=== PATIENT | male | born 1990 | race African-American/Black ===

== ENCOUNTER 2016-05-22 00:17 | Emergency (ER) | payer BC, SELFPAY ==
[2016-05-22] MEDS ORDERED: predniSONE 20 MG TAB ONE (00:38)
[2016-05-22] MEDS ORDERED: Cyclobenzaprine 10 MG TAB ONE (00:38)
[2016-05-22] MEDS ORDERED: Ketorolac Tromethamine 60 MG/2 ML VIAL ONE (00:38)
--- NOTE | 2016-05-22 01:17 | ERRECORD ---
[facility] EMERGENCY RECORD HPI BACK (00:53 MPUR) CHIEF COMPLAINT: Patient presents for evaluation of pain. HISTORIAN: History provided by patient, 27 yo male with 2 day hx of pain in the lumbar region. Gradual onset, unassociated with injury.Denies problems with bladder of bowel control. MECHANISM OF INJURY: No apparent mechanism of injury. LOCATION: No localizing symptoms. TIME COURSE: Gradual onset of symptoms. ASSOCIATED WITH: No associated bladder incontinence, No associated bowel incontinence, No associated dysuria, No associated fever, No associated motor weakness, No associated numbness, No associated problems with urination, pain in the ebuttocks. EXACERBATED BY: Patient's condition exacerbated by nothing. RELIEVED BY: Patient's condition relieved by nothing. RISK FACTORS: No malignancy risks identified, No herniated disc risks identified. ROS (01:03 MPUR) CONSTITUTIONAL: Historian denies fever. EYES: Historian denies eye pain. ENT: Historian denies rhinorrhea. CARDIOVASCULAR: Historian denies chest pain. RESPIRATORY: Historian denies cough. GI: Historian denies diarrhea, Historian denies vomiting. GENITOURINARY MALE: Historian denies dysuria. MUSCULOSKELETAL: See HPI. SKIN: Historian denies rash. NEUROLOGIC: Historian denies seizures. ENDOCRINE: Historian denies skin changes. HEMO/LYMPHATIC: Historian denies easy bruising. PAST MEDICAL HISTORY (00:28 KASA) MEDICAL HISTORY: Past medical history includes history of hypertension, which has been treated, Patient is compliant. MALE SURGICAL HISTORY: Surgical history of tonsillectomy. PSYCHIATRIC HISTORY: Notes: DENIES. SOCIAL HISTORY: Patient drinks socially, twice a month, Patient denies drug use, Patient has no smoking history, Lives at home, with family. FAMILY HISTORY: Maternal history of diabetes, Type I, Maternal history of hypertension. KNOWN ALLERGIES Ceclor: Source: Patient, - unknown reaction, states reaction occured as a child NKDA (Unconfirmed) CURRENT MEDICATIONS (00:25 KASA) &a-1R&a+25V*p+0X*[id number]*c202B*c15G*c2P*p-0X&a-25V&a+1R Name: Dante Shannon : 1990 M26 MedRec: [id number] AcctNum: [id number] Prepared: FriMay 22, 2016 01:21 by Interface Page 1 of 3 pMD [facility] EMERGENCY RECORD lisinopril: TABLET : Strength - 10 mg : ORAL Patient Dose: 20 mg Oral once a day (in the morning). VITAL SIGNS VITAL SIGNS: BP: 191/93, Pulse: 77, Resp: 20, Temp: 97.9 (Oral), Pain: 9 (Constant), O2 sat: 99 on Room Air, Time: 05/22/2016 00:21. (00:21 KASA) BP: 142/88, Pulse: 75, Resp: 20, Pain: 5, O2 sat: 97 on RA, Time: 05/22/2016 01:05. (01:05 KASA) PHYSICAL EXAM CONSTITUTIONAL: Vital signs reviewed, Patient appears non toxic. (01:03 MPUR) HEAD: Head exam included findings of head atraumatic, normocephalic. (01:03 MPUR) EYES: Eye exam included findings of eyelids normal to inspection, Conjunctiva normal, Sclera normal. (01:03 MPUR) ENT: Nose exam normal, no nasal deformity, mucous membranes moist. (01:03 MPUR) NECK: Neck exam included findings of normal range of motion, no ecchymosis. (01:03 MPUR) RESPIRATORY CHEST: Respiratory exam included findings of no respiratory distress, NL Respiratory rate and no increased work of breathing. (01:03 MPUR) BACK: Back exam included findings of, no abrasions, no contusions, no ecchymosis, Range of motion, limited by pain, Tenderness, paraspinal to the left lower back, paraspinal to the right lower, paraspinal to the lower back, muscle spasm over L5-S1 with spasm in to buttocks bilaterally., no costovertebral angle tenderness, no pain with straight leg raise. (01:04 MPUR) LOWER EXTREMITY: Lower extremity exam included findings of inspection normal, no cyanosis. (01:03 MPUR) NEURO: Speech normal, alert. (01:03 MPUR) SKIN: dry, and normal in color, no rash. (01:03 MPUR) PSYCHIATRIC: Normal affect, Recent memory normal. (01:03 MPUR) MEDICATION ADMINISTRATION SUMMARY Drug Name: *Flexeril, Dose Ordered: 10 mg, Route: Oral, Status: Given, Time: 00:45 05/22/2016, Drug Name: *predniSONE oral, Dose Ordered: 60 mg, Route: Oral, Status: Given, Time: 00:45 05/22/2016, Drug Name: ketorolac intramuscular, Dose Ordered: 60 mg, Route: Intramuscular, Status: Given, Time: 00:45 05/22/2016, *Additional information available in notes, Detailed record available in Medication Service section. &a-1R&a+25V*p+0X*[id number]*c202B*c15G*c2P*p-0X&a-25V&a+1R Name: Dante Shannon : 1990 M26 MedRec: [id number] AcctNum: [id number] Prepared: FriMay 22, 2016 01:21 by Interface Page 2 of 3 pMD [facility] EMERGENCY RECORD DOCTOR NOTES TEXT: I have reviewed and agree with nurse's past medical, family, and social history as documented on chart. Pt's vital signs have been reviewed. (01:03 MPUR) Pt with significant paravertebral MM spasm. May need PT to assist in recovery. No sign of Cauda Equina. (01:07 MPUR) PROBLEM LIST No recorded problems DIAGNOSIS (01:15 MPUR) FINAL: PRIMARY: Low back pain, ADDITIONAL: paravertebral muscle spasm. PRESCRIPTION (00:49 MPUR) cyclobenzaprine: TABLET : 10 mg : ORAL : Quantity: 1 Unit: tab(s) Route: ORAL Schedule: every 8 hours PRN Dispense: 21 May substitute. Refills: No Refills . NOTES: muscle spasm No Refills. predniSONE oral: TABLET : 20 mg : ORAL : Quantity: 3 Unit: tab(s) Route: ORAL Schedule: once a day (in the morning) Dispense: 15 Unit: tab(s) May substitute. Refills: No Refills . NOTES: No Refills. DISPOSITION PATIENT: Disposition Type: Discharge, Disposition: *Discharge Home. (01:15 ROBBIEUR) Patient left the department. (01:16 WILBUR) Ponce: WILBUR=IRINA Bazzi, Kelley ROSE=MD Sawyer, Lino &a-1R&a+25V*p+0X*[id number]*c202B*c15G*c2P*p-0X&a-25V&a+1R Name: Dante Shannon : 1990 M26 MedRec: [id number] AcctNum: [id number] Prepared: FriMay 22, 2016 01:21 by Interface Page 3 of 3 pMD MTDD
--- NOTE | 2016-05-22 01:26 | PICIS ---
[facility] EMERGENCY RECORD TRIAGE (FriMay 22, 2016 00:23 KASA) TRIAGE NOTES: Complains of lower back pain that started a couple of days ago. Unknown cause, but states he was at work when it started hurting. (FriMay 22, 2016 00:23 KASA) PATIENT: NAME: Dante Shannon, AGE: 26, GENDER: male, : Fri1990, TIME OF GREET: FriMay 22, 2016 00:18, PREFERRED LANGUAGE: Norwegian, ETHNICITY: Not or , ECODE BILLING MAP: [facility] ER, SSN: [id number], Zip Code: [address], KG WEIGHT: [phone], PHONE: , , , PERSON ID: [id number], PCP: Kirk BUNCH. (FriMay 22, 2016 00:23 KASA) COMPLAINT: BACK PAIN. (FriMay 22, 2016 00:23 KASA) ADMISSION: URGENCY: 5 Fast Track, ADMISSION SOURCE: Home, TRANSPORT: CAR, BED: ER -03. (FriMay 22, 2016 00:23 KASA) ASSESSMENT: Assessment: tenderness to bilateral lower back, Symptoms began 2 days ago. (00:28 KASA) PAIN: Patient complains of pain described as, sharp, shooting, on a scale 0-10 patient rates pain as 9, Location lower back, Pain is constant, Onset was 05/20/2016, Aggravating factors:, Aggravating factors include sitting still makes it hurt more, No relieving factors. (00:28 KASA) SIRS SCORING: Heart Rate 55-109 (0), Temp range 96.8-101.1 (0), respiratory rate 12-24 (0), Mental Status altered: no (0). (00:28 KASA) TRIAGE SCREENING: Patient denies suicidal ideation, Patient denies presence of domestic violence. (00:28 KASA) TREATMENTS IN PROGRESS: Treatments given Prehospital: Advil at 6 pm. (00:28 KASA) PROVIDERS: TRIAGE NURSE: Kelley Bazzi RN. (FriMay 22, 2016 00:23 KASA) VITAL SIGNS: BP 191/93, Pulse 77, Resp 20, Temp 97.9, (Oral), Pain 9, (Constant), O2 Sat 99, on Room Air, Time 05/22/2016 00:21. (00:21 KASA) PREVIOUS VISIT ALLERGIES: NKDA. (FriMay 22, 2016 00:23 KASA) NKDA. (00:28 KASA) KNOWN ALLERGIES Ceclor: Source: Patient, - unknown reaction, states reaction occured as a child NKDA (Unconfirmed) CURRENT MEDICATIONS (00:25 KASA) lisinopril: TABLET : Strength - 10 mg : ORAL Patient Dose: 20 mg Oral once a day (in the morning). VITAL SIGNS VITAL SIGNS: BP: 191/93, Pulse: 77, Resp: 20, Temp: 97.9 (Oral), Pain: 9 (Constant), O2 sat: 99 on Room Air, Time: 05/22/2016 00:21. &a-1R&a+25V*p+0X*[id number]*c202B*c15G*c2P*p-0X&a-25V&a+1R Name: Dante Shannon : 1990 M26 MedRec: [id number] AcctNum: [id number] Prepared: FriMay 22, 2016 01:21 by Interface Page 1 of 11 pMD [facility] EMERGENCY RECORD (00:21 KASA) BP: 142/88, Pulse: 75, Resp: 20, Pain: 5, O2 sat: 97 on RA, Time: 05/22/2016 01:05. (01:05 KASA) NURSING ASSESSMENT: BACK (00:28 KASA) CONSTITUTIONAL: Patient arrives ambulatory, Gait steady, History obtained from patient, Patient appears, in distress due to pain, obese, uncomfortable, Patient cooperative, Patient alert, Oriented to person, place and time, Skin warm, Skin dry, Skin normal in color, Mucous membranes pink, Mucous membranes moist, Patient complains of Lower back pain, Complains of lower back pain that started a couple of days ago. Unknown cause, but states he was at work when it started hurting. 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 BACK: Back assessment findings include tenderness to, bilateral lower back, no paresthesias to extremities, no weakness to extremities, no incontinence of bowel or bladder. NECK: Neck assessment findings include trachea midline. SAFETY: Side rails up, Cart/Stretcher in lowest position, Family at bedside, Call light within reach, Hospital ID band on. NURSING PROCEDURE: DISCHARGE NOTE (: KASA) DISCHARGE: Patient discharged to home, ambulating without assistance, family driving, accompanied by //partner, Summary of Care printed/ provided, Discharge instructions given to patient, Simple or moderate discharge teaching performed, . Educated and provided handout regarding diagnosis of: Lumbar spasms Follow up with PCP in 2-4 days,, Prescriptions given and instructions on side effects given, Name of prescription(s) given: Flexeril, Prednisone, Above person(s) verbalized understanding of discharge instructions and follow-up care. BELONGINGS: Belongings and valuables with patient upon arrival to the Emergency Department include:, Belongings and valuables with patient at time of discharge include:, Belongings remain with patient, Valuables remain with patient. SAFETY: Side rails up, Cart/Stretcher in lowest position, Family at bedside, Call light within reach, Hospital ID band on. VITAL SIGNS: BP: 142, / 88, Pulse: 75, Resp: 20, Pain: 5, O2 sat: 97, on: RA. NURSING PROCEDURE: TEACHING (: KASA) TEACHING: Prescriptions given and instructions on side effects given, Name of prescription(s) given: FLEXERIL (CYCLOBENZAPRINE) is a muscle relaxer. It is used to treat muscle pain, spasms, and stiffness. SIDE EFFECTS THAT YOU SHOULD REPORT TO YOUR DOCTOR OR HEALTH CHEMICAL PRODUCTION TECHNICIAN SOON POSSIBLE: allergic reactions like skin rash, itching or hives, swelling of the face, lips, or tongue, chest pain, fast heartbeat, hallucinations, seizures, vomiting. SIDE EFFECTS THAT USUALLY DO NOT REQUIRE MEDICAL ATTENTION (REPORT TO YOUR &a-1R&a+25V*p+0X*h5741C*c202B*c15G*c2P*p-0X&a-25V&a+1R Name: Dante Shannon : 1990 M26 MedRec: [id number] AcctNum: [id number] Prepared: FriMay 22, 2016 01:21 by Interface Page 2 of 11 D [facility] EMERGENCY RECORD DOCTOR OR HEALTH CHEMICAL PRODUCTION TECHNICIAN IF THEY CONTINUE OR ARE BOTHERSOME): Headache., Notes: Additional information about the medication you were given and/or prescribed. Tell your doctor or healthcare professional if your symptoms do not start to get better or if they get worse. YOU MAY GET DROWSY OR DIZZY. DO NOT DRIVE, USE MACHINERY, OR DO ANYTHING THAT NEEDS MENTAL ALERTNESS UNTIL YOU KNOW HOW THIS MEDICINE AFFECTS YOU. DO NOT STAND OR SIT UP QUICKLY, ESPECIALLY IF YOU ARE AN OLDER PATIENT. THIS REDUCES THE RISK OF DIZZY OR FAINTING SPELLS. ALCOHOL MAY INTERFERE WITH THE EFFECT OF THIS MEDICINE. AVOID ALCOHOLIC DRINKS. Your mouth may get dry. Drinking water, chewing sugarless gum, or sucking on hard candy may help. How to take: Take this medicine by mouth with a glass of water. Follow the directions on the prescription label. Do not cut, crush or chew this medicine. If this medicine upsets your stomach, take it with food or milk. Take your medicine at regular intervals. Do not take it more often than directed. If you miss a dose, take it as soon as you can. If it is almost time for your next dose, take only that dose. Do not take double or extra doses. Let your health care provided know if you have any of these conditions: heart disease irregular heartbeat liver disease past heart attack thyroid problem an unusual or allergic reaction to cyclobenzaprine, tricyclic antidepressants, lactose, other medicines, foods, dyes, or preservatives or trying to get breast-feeding What may interact with this medicine? Do not take this medicine with any of the following medications: certain medicines for fungal infections like fluconazole, itraconazole, ketoconazole, posaconazole, voriconazole cisapride dofetilide dronedarone droperidol flecainide grepafloxacin halofantrine levomethadyl MAOIs like Carbex, Eldepryl, Marplan, Nardil, and Parnate nilotinib pimozide probucol &a-1R&a+25V*p+0X*v0296S*c202B*c15G*c2P*p-0X&a-25V&a+1R Name: Dante Shannon : 1990 M26 MedRec: [id number] AcctNum: [id number] Prepared: FriMay 22, 2016 01:21 by Interface Page 3 of 11 pMD [facility] EMERGENCY RECORD sertindole thioridazine ziprasidone This medicine may also interact with the following medications: abarelix alcohol certain medicines for cancer certain medicines for depression, anxiety, or psychotic disturbances certain medicines for infection like alfuzosin, chloroquine, clarithromycin, levofloxacin, mefloquine, pentamidine, troleandomycin certain medicines for irregular heart beat certain medicines used for sleep or numbness during surgery or procedure contrast dyes dolasetron guanethidine methadone octreotide ondansetron other medicines that prolong the QT interval (cause an abnormal heart rhythm) palonosetron phenothiazines like chlorpromazine, mesoridazine, prochlorperazine, thioridazine tramadol vardenafil This list may not describe all possible interactions. Give your health care provider a list of all the medicines, herbs, non-prescription drugs, or dietary supplements you use. Also tell them if you smoke, drink alcohol, or use illegal drugs. Some items may interact with your medicine. PATIENT &/OR CAREGIVER VERBALIZED UNDERSTANDING OF THE TEACHING PROVIDED AND WAS ABLE TO DEMONSTRATE TEACHING EVIDENCED BY TEACH BACK. Simple or moderate teaching performed, by IRINA Ledbetter, Prescriptions given and instructions on side effects given, Name of prescription(s) given: PREDNISONE is a corticosteroid. It is commonly used to treat inflammation of the skin, joints, lungs, and other organs. Common conditions treated include asthma, allergies, and arthritis. It is also used for other conditions, such as blood disorders and diseases of the adrenal glands. SIDE EFFECTS THAT YOU SHOULD REPORT TO YOUR DOCTOR OR HEALTH CHEMICAL PRODUCTION TECHNICIAN SOON POSSIBLE: allergic reactions like skin rash, itching or hives, swelling of the face, lips, or tongue, changes in emotions or moods, changes in vision, depressed mood, eye pain, fever or chills, cough, sore throat, pain or difficulty passing urine, increased thirst, swelling of ankles, feet. SIDE EFFECTS THAT USUALLY DO NOT REQUIRE MEDICAL ATTENTION (but should report if they continue or are bothersome):, confusion, excitement, restlessness, headache, nausea, vomiting, skin problems, acne, thin and shiny skin, trouble sleeping, weight gain., Notes: &a-1R&a+25V*p+0X*x5242G*c202B*c15G*c2P*p-0X&a-25V&a+1R Name: Dante Shannon : 1990 M26 MedRec: [id number] AcctNum: [id number] Prepared: FriMay 22, 2016 01:21 by Interface Page 4 of 11 D [facility] EMERGENCY RECORD Additional information about the medication you were given and/or prescribed. Visit your doctor or health healthcare insurance sales agent for regular checks on your progress. If you are taking this medicine over a prolonged period, carry an identification card with your name and address, the type and dose of your medicine, and your doctor's name and address. This medicine may increase your risk of getting an infection. Tell your doctor or health healthcare insurance sales agent if you are around anyone with measles or chickenpox, or if you develop sores or blisters that do not heal properly. If you are going to have surgery, tell your doctor or health healthcare insurance sales agent that you have taken this medicine within the last twelve months. Ask your doctor or health healthcare insurance sales agent about your diet. You may need to lower the amount of salt you eat. This medicine may affect blood sugar levels. If you have diabetes, check with your doctor or health healthcare insurance sales agent before you change your diet or the dose of your diabetic medicine. How to take? Take this medicine by mouth with a glass of water. Follow the directions on the prescription label. Take this medicine with food. If you are taking this medicine once a day, take it in the morning. Do not take more medicine than you are told to take. Do not suddenly stop taking your medicine because you may develop a severe reaction. Your doctor will tell you how much medicine to take. If your doctor wants you to stop the medicine, the dose may be slowly lowered over time to avoid any side effects. If you miss a dose, take it as soon as you can. If it is almost time for your next dose, talk to your doctor or health healthcare insurance sales agent. You may need to miss a dose or take an extra dose. Do not take double or extra doses without advice. Do not take this medicine with any of the following medications: metyrapone mifepristone This medicine may also interact with the following medications: aminoglutethimide amphotericin B aspirin and aspirin-like medicines barbiturates certain medicines for diabetes, like glipizide or glyburide cholestyramine cholinesterase inhibitors cyclosporine digoxin diuretics ephedrine female hormones, like estrogens and control pills isoniazid ketoconazole NSAIDS, medicines for pain and inflammation, like ibuprofen or &a-1R&a+25V*p+0X*h0463B*c202B*c15G*c2P*p-0X&a-25V&a+1R Name: Dante Shannon : 1990 M26 MedRec: [id number] AcctNum: [id number] Prepared: FriMay 22, 2016 01:21 by Interface Page 5 of 11 pMD [facility] EMERGENCY RECORD naproxen phenytoin rifampin toxoids vaccines warfarin This list may not describe all possible interactions. Give your health care provider a list of all the medicines, herbs, non-prescription drugs, or dietary supplements you use. Also tell them if you smoke, drink alcohol, or use illegal drugs. Some items may interact with your medicine. Before taking this medication, let your health care provider know if you have any of these conditions: Andre's syndrome diabetes glaucoma heart disease high blood pressure infection (especially a virus infection such as chickenpox, cold sores, or herpes) kidney disease liver disease mental illness myasthenia gravis osteoporosis seizures stomach or intestine problems thyroid disease an unusual or allergic reaction to lactose, prednisone, other medicines, foods, dyes, or preservatives or trying to get breast-feeding PARENT/ GUARDIAN VERBALIZES UNDERSTANDING OF THE TEACHING PROVIDED AND WAS ABLE TO DEMONSTRATE TEACHING EVIDENCED BY TEACH BACK. Simple or moderate teaching performed, by IRINA Benson, Back Spasm [No Trauma] Spasm of the back muscles can occur after a sudden forceful twisting or bending force (such as in a car accident), after a simple awkward movement, or after lifting something heavy with poor body positioning. In either case, muscle spasm is often present and adds to the pain. Sleeping in an awkward position or on a poor quality mattress can also cause this. Some persons respond to emotional stress by tensing the muscles of their back. The treatment described below will usually help the pain to go away in 5-7 days. Pain that continues may require further evaluation or other types of treatment such as physical therapy. Unless you had a physical injury (for example, a car accident or fall), x-rays are usually not ordered for the initial evaluation of back pain. If pain continues and does not respond to medical treatment, x-rays and other tests may be performed at a later time. &a-1R&a+25V*p+0X*m6901S*c202B*c15G*c2P*p-0X&a-25V&a+1R Name: Dante Shannon : 1990 M26 MedRec: [id number] AcctNum: [id number] Prepared: FriMay 22, 2016 01:21 by Interface Page 6 of 11 pMD [facility] EMERGENCY RECORD Home Care: 1. You may need to stay in bed the first few days. But, as soon as possible, begin sitting or walking to avoid problems with prolonged bed rest (muscle weakness, worsening back stiffness and pain, blood clots in the legs). 2. When in bed, try to find a position of comfort. A firm mattress is best. Try lying flat on your back with pillows under your knees. You can also try lying on your side with your knees bent up toward your chest and a pillow between your knees. 3. Avoid prolonged sitting. This puts more stress on the lower back than standing or walking. 4. Some persons find relief with heat (hot shower, hot bath, or heating pad) and massage, while others prefer cold packs (crushed or cubed ice in a plastic bag, wrapped in a towel). Try both and use the method that feels best for 20 minutes several times a day. 5. You may use acetaminophen (Tylenol) or ibuprofen (Motrin, Advil) to control pain, unless another pain medicine was prescribed. [NOTE: If you have chronic liver or kidney disease or ever had a stomach ulcer or GI bleeding, talk with your doctor before using these medicines.] 6. Gentle stretching will help your back heal faster. Perform this simple routine 2-3 times a day until your back is feeling better. LOW BACK STRETCH Lie on your back with your knees bent and both feet on the ground. Slowly raise your left knee to your chest as you flatten your lower back against the floor. Hold for 5 seconds. Relax and repeat the exercise with your right knee. Do 10 of these exercises for each leg. Repeat, hugging both knees to your chest at the same time. 7. Be aware of safe lifting methods and do not lift anything over 15 pounds until all the pain is gone. Follow Up with your doctor or this facility if your symptoms do not start to improve after one week. Physical therapy or further tests may be needed. [NOTE: If x-rays were taken, they will be reviewed by a radiologist. You will be notified of any new findings that may affect your care.] Return Promptly or contact your doctor if any of the following occurs: Pain becomes worse or spreads to your legs Weakness or numbness in one or both legs Loss of bowel or bladder control Numbness in the groin or genital area Unexplained fever over 100.4F (38.0C) Burning or pain when passing urine PATIENT &/OR CAREGIVER VERBALIZED UNDERSTANDING OF THE TEACHING PROVIDED AND WAS ABLE TO DEMONSTRATE TEACHING EVIDENCED BY TEACH BACK. MEDICATION ADMINISTRATION SUMMARY &a-1R&a+25V*p+0X*b3368K*c202B*c15G*c2P*p-0X&a-25V&a+1R Name: Dante Shannon : 1990 M26 MedRec: [id number] AcctNum: [id number] Prepared: FriMay 22, 2016 01:21 by Interface Page 7 of 11 pMD [facility] EMERGENCY RECORD Drug Name: *Flexeril, Dose Ordered: 10 mg, Route: Oral, Status: Given, Time: 00:45 05/22/2016, Drug Name: *predniSONE oral, Dose Ordered: 60 mg, Route: Oral, Status: Given, Time: 00:45 05/22/2016, Drug Name: ketorolac intramuscular, Dose Ordered: 60 mg, Route: Intramuscular, Status: Given, Time: 00:45 05/22/2016, *Additional information available in notes, Detailed record available in Medication Service section. MEDICATION SERVICE (00:45 MPUR) Flexeril: Order: Flexeril (cyclobenzaprine HCl) - Dose: 10 mg : Oral Schedule: Now Notes: Read back and verified, Verbal Order Ordered by: Lino Jacques MD Entered by: Kelley Bazzi RN FriMay 22, 2016 00:46 , Co-signed by: Lino Jacques MD FriMay 22, 2016 00:48, Acknowledged by: Kelley Bazzi RN FriMay 22, 2016 00:49 Documented as given by: Kelley Bazzi RN FriMay 22, 2016 00:45 Patient, Medication, Dose, Route and Time verified prior to administration. Amount given: 10 mg, Site: Medication administered P.O., Correct patient, time, route, dose and medication confirmed prior to administration, Patient advised of actions and side-effects prior to administration, Allergies confirmed and medications reviewed prior to administration, Patient in position of comfort, Side rails up, Cart in lowest position, Family at bedside. ketorolac intramuscular: Order: ketorolac intramuscular (ketorolac tromethamine) - Dose: 60 mg : Intramuscular Schedule: Now Ordered by: Lino Jacques MD Entered by: Lino Jacques MD FriMay 22, 2016 00:48 , Acknowledged by: Kelley Bazzi RN FriMay 22, 2016 00:50 Documented as given by: Kelley Bazzi RN FriMay 22, 2016 00:45 Patient, Medication, Dose, Route and Time verified prior to administration. Amount given: 60 mg, Medication administered to left buttock, Correct patient, time, route, dose and medication confirmed prior to administration, Patient advised of actions and side-effects prior to administration, Allergies confirmed and medications reviewed prior to administration, Patient in position of comfort, Side rails up, Cart in lowest position, Family at bedside. predniSONE oral: Order: predniSONE oral (prednisone) - Dose: 60 mg : Oral Schedule: Now Notes: Read back and verified, Verbal Order Ordered by: Lino Jacques MD Entered by: Kelley Bazzi RN FriMay 22, 2016 00:47 , Co-signed by: Lino Jacques MD FriMay 22, 2016 00:48, &a-1R&a+25V*p+0X*z6819I*c202B*c15G*c2P*p-0X&a-25V&a+1R Name: Dante Shannon : 1990 M26 MedRec: [id number] AcctNum: [id number] Prepared: FriMay 22, 2016 01:21 by Interface Page 8 of 11 pMD [facility] EMERGENCY RECORD Acknowledged by: Kelley Bazzi RN FriMay 22, 2016 00:49 Documented as given by: Kelley Bazzi RN FriMay 22, 2016 00:45 Patient, Medication, Dose, Route and Time verified prior to administration. Amount given: 60 mg, Site: Medication administered P.O., Correct patient, time, route, dose and medication confirmed prior to administration, Patient advised of actions and side-effects prior to administration, Allergies confirmed and medications reviewed prior to administration, Patient in position of comfort, Side rails up, Cart in lowest position, Family at bedside. HPI BACK (00:53 MPUR) CHIEF COMPLAINT: Patient presents for evaluation of pain. HISTORIAN: History provided by patient, 27 yo male with 2 day hx of pain in the lumbar region. Gradual onset, unassociated with injury.Denies problems with bladder of bowel control. MECHANISM OF INJURY: No apparent mechanism of injury. LOCATION: No localizing symptoms. TIME COURSE: Gradual onset of symptoms. ASSOCIATED WITH: No associated bladder incontinence, No associated bowel incontinence, No associated dysuria, No associated fever, No associated motor weakness, No associated numbness, No associated problems with urination, pain in the ebuttocks. EXACERBATED BY: Patient's condition exacerbated by nothing. RELIEVED BY: Patient's condition relieved by nothing. RISK FACTORS: No malignancy risks identified, No herniated disc risks identified. ROS (01:03 MPUR) CONSTITUTIONAL: Historian denies fever. EYES: Historian denies eye pain. ENT: Historian denies rhinorrhea. CARDIOVASCULAR: Historian denies chest pain. RESPIRATORY: Historian denies cough. GI: Historian denies diarrhea, Historian denies vomiting. GENITOURINARY MALE: Historian denies dysuria. MUSCULOSKELETAL: See HPI. SKIN: Historian denies rash. NEUROLOGIC: Historian denies seizures. ENDOCRINE: Historian denies skin changes. HEMO/LYMPHATIC: Historian denies easy bruising. PAST MEDICAL HISTORY (00:28 KASA) MEDICAL HISTORY: Past medical history includes history of hypertension, which has been treated, Patient is compliant. MALE SURGICAL HISTORY: Surgical history of tonsillectomy. PSYCHIATRIC HISTORY: Notes: DENIES. SOCIAL HISTORY: Patient drinks socially, twice a month, Patient &a-1R&a+25V*p+0X*g2188Z*c202B*c15G*c2P*p-0X&a-25V&a+1R Name: ShivaDante Ivett : 1990 M26 MedRec: [id number] AcctNum: [id number] Prepared: FriMay 22, 2016 01:21 by Interface Page 9 of 11 pMD [facility] EMERGENCY RECORD denies drug use, Patient has no smoking history, Lives at home, with family. FAMILY HISTORY: Maternal history of diabetes, Type I, Maternal history of hypertension. PHYSICAL EXAM CONSTITUTIONAL: Vital signs reviewed, Patient appears non toxic. (01:03 MPUR) HEAD: Head exam included findings of head atraumatic, normocephalic. (01:03 MPUR) EYES: Eye exam included findings of eyelids normal to inspection, Conjunctiva normal, Sclera normal. (01:03 MPUR) ENT: Nose exam normal, no nasal deformity, mucous membranes moist. (01:03 MPUR) NECK: Neck exam included findings of normal range of motion, no ecchymosis. (01:03 MPUR) RESPIRATORY CHEST: Respiratory exam included findings of no respiratory distress, NL Respiratory rate and no increased work of breathing. (01:03 MPUR) BACK: Back exam included findings of, no abrasions, no contusions, no ecchymosis, Range of motion, limited by pain, Tenderness, paraspinal to the left lower back, paraspinal to the right lower, paraspinal to the lower back, muscle spasm over L5-S1 with spasm in to buttocks bilaterally., no costovertebral angle tenderness, no pain with straight leg raise. (01:04 MPUR) LOWER EXTREMITY: Lower extremity exam included findings of inspection normal, no cyanosis. (01:03 MPUR) NEURO: Speech normal, alert. (01:03 MPUR) SKIN: dry, and normal in color, no rash. (01:03 MPUR) PSYCHIATRIC: Normal affect, Recent memory normal. (01:03 MPUR) EVENTS TRANSFER: Triage to Emergency Emergency Room -03. (FriMay 22, 2016 00:23 KASA) Removed from Emergency Emergency Room -03. (01:16 KASA) DOCTOR NOTES TEXT: I have reviewed and agree with nurse's past medical, family, and social history as documented on chart. Pt's vital signs have been reviewed. (01:03 MPUR) Pt with significant paravertebral MM spasm. May need PT to assist in recovery. No sign of Cauda Equina. (01:07 MPUR) PROBLEM LIST No recorded problems DIAGNOSIS (01:15 MPUR) FINAL: PRIMARY: Low back pain, ADDITIONAL: &a-1R&a+25V*p+0X*[id number]*c202B*c15G*c2P*p-0X&a-25V&a+1R Name: Dante Shannon : 1990 M26 MedRec: [id number] AcctNum: [id number] Prepared: FriMay 22, 2016 01:21 by Interface Page 10 of 11 pMD [facility] EMERGENCY RECORD paravertebral muscle spasm. DISPOSITION PATIENT: Disposition Type: Discharge, Disposition: *Discharge Home. (01:15 MPUR) Patient left the department. (01:16 [facility]) INSTRUCTION (00:53 MPUR) DISCHARGE: BACK EXERCISES, LUMBAR, LUMBAR MUSCLE SPASM. FOLLOWUP: CLINIC, [facility], [address] [place] [id number] , [phone]. SPECIAL: alternate hot and cold packs. Take the meds. Follow up with your physician in 2-4 days. Tylenol and/or Advil for Pain. PRESCRIPTION (00:49 MPUR) cyclobenzaprine: TABLET : 10 mg : ORAL : Quantity: 1 Unit: tab(s) Route: ORAL Schedule: every 8 hours PRN Dispense: 21 May substitute. Refills: No Refills . NOTES: muscle spasm No Refills. predniSONE oral: TABLET : 20 mg : ORAL : Quantity: 3 Unit: tab(s) Route: ORAL Schedule: once a day (in the morning) Dispense: 15 Unit: tab(s) May substitute. Refills: No Refills . NOTES: No Refills. IMAGING (01:15 [facility]) DISC: Image captured from scanner. *SUPPLY CHARGE SHEET: Image captured from scanner. ADMIN DIGITAL SIGNATURE: MD Jacques Marcus. (01:09 MPUR) MD Jacques Marcus. (01:15 MPUR) Ponce: WILBUR=IRINA Bazzi, Kelley MPUR=MD Jacques Marcus &a-1R&a+25V*p+0X*[id number]*c202B*c15G*c2P*p-0X&a-25V&a+1R Name: ShivaDante Ivett : 1990 M26 MedRec: [id number] AcctNum: [id number] Prepared: Siri May 22, 2016 01:21 by Interface Page 11 of 11 pMD MTDD
== END 2016-05-22 01:05 | disposition home or self-care (01) ==
LOC: NAV ERS 00:17
DX: M62.830 Muscle spasm of back (principal); I10 Essential (primary) hypertension
CPT/HCPCS: 96372; J1885; J7506

== ENCOUNTER → 2017-04-28 16:17 | Emergency (ER) | payer BC, OTHER ==
[~2017-04-28 16:17] MED LIST: Cyclobenzaprine 10 MG TAB ONE; Ketorolac Tromethamine 60 MG/2 ML VIAL ONE
--- NOTE | 2017-04-28 18:20 | RAD ---
LUMBAR SPINE RADIOGRAPHS THREE VIEWS: Date: 04-28-17 Provided Clinical History: Back pain status post injury. FINDINGS: Five non rib bearing lumbar type vertebral bodies are present. Lumbar alignment appears normal. Verte bral body heights appear preserved. Pedicles appear intact. No lytic or blastic lytic lesions are see n. IMPRESSION: No evidence for an acute osseous abnormality. POS: [facility]
== END | disposition home or self-care (01) ==
LOC: NAV ERS 16:17
DX: M54.5 Low back pain (principal); I10 Essential (primary) hypertension; Z79.899 Other long term (current) drug therapy
CPT/HCPCS: 72100; 96372; J1885

== ENCOUNTER 2018-08-23 11:34 | Emergency (ER) | payer OTHER ==
[2018-08-23] MEDS ORDERED: Lidocaine 1% (PF) 30 ML VIAL ONE (11:48)
== END 2018-08-23 12:00 | disposition home or self-care (01) ==
LOC: NAV ERS 11:34
DX: L02.416 Cutaneous abscess of left lower limb (principal); I10 Essential (primary) hypertension; Z79.899 Other long term (current) drug therapy
CPT/HCPCS: 10060; J2001

== ENCOUNTER 2018-08-28 13:35 | Emergency (ER) | payer OTHER ==
--- NOTE | 2018-08-28 14:24 | RAD ---
EXAM: XR Shoulder Rt 3 View STANDARD PROVIDED CLINICAL HISTORY: Injury. Patient feels of arm will not stand socket. COMPARISON: None FINDINGS: The coracoclavicular and acromioclavicular distances are within normal limits. No fracture, dislocati on, or osseous abnormality is identified. IMPRESSION: No acute osseous abnormality. If there is concern for internal derangement or persistent symptoms, ad ditional imaging is advised.
--- NOTE | 2018-08-28 14:32 | RAD ---
RIGHT RIBS AND PA CHEST 4 VIEWS: Date: 08/28/18 HISTORY: Pain to right ribs, status post injury. FINDINGS: Heart size is within normal limits. Mediastinal structures are normal in appearance. No signs of pneu mothorax. No rib fractures are visualized. IMPRESSION: Negative right ribs. POS: [facility]
== END 2018-08-28 14:55 | disposition home or self-care (01) ==
LOC: NAV ERS 13:35
DX: S43.401A Unspecified sprain of right shoulder joint, initial encounter (principal); I10 Essential (primary) hypertension; Z79.899 Other long term (current) drug therapy; X50.9XXA Other and unspecified overexertion or strenuous movements or postures, initial encounter

== ENCOUNTER 2022-03-13 11:36 | Emergency (ER) | payer OTHER, SELFPAY ==
[2022-03-13] MEDS ORDERED: Ibuprofen 200 MG TAB ONE (12:01)
== END 2022-03-13 12:45 | disposition home or self-care (01) ==
LOC: NAV ERS 11:36
DX: J10.1 Influenza due to other identified influenza virus with other respiratory manifestations (principal); E11.9 Type 2 diabetes mellitus without complications; E78.00 Pure hypercholesterolemia, unspecified; I10 Essential (primary) hypertension
CPT/HCPCS: 87804; 99283